=== PATIENT | female | born 1965 | race Two or more races ===

== ENCOUNTER 2020-05-13 11:17 | Emergency (ER) | payer SELFPAY ==
[~2020-05-13] VITALS: Ht 152.4 cm; Wt 67.2 kg
[2020-05-13] MEDS ORDERED: MORPHINE SULFATE 10 MG/ML VIAL. IV ONE (11:45)
[2020-05-13] MEDS ORDERED: LIDO700A21 TP (12:33)
[2020-05-13] MEDS ORDERED: GABA300C18 PO (12:33)
[2020-05-13] MEDS ORDERED: VALA10008 PO (12:33)
--- NOTE | 2020-05-13 12:35 | PHYS DOC ---
Past Medical History Past Medical History: No Pertinent History Past Surgical History: No Surgical History Smoking Status: Never Smoker Alcohol Use: None General Adult EDM: Chief Complaint: SKIN RASH/ABSCESS HPI: HPI: Patient is a 54-year-old female who presents to the emergency room complaining of right side pain. According to her they were seen at a different hospital and diagnosed with some kind of breast cyst and placed on antibiotics and given pain medication. She is having worsening pain and they want the cyst taken out. This started 5 days ago. They have been taking the medications as prescribed. They are unable to tell me which hospital they went to. She is not been having any fever. She does not have any true chest pain, shortness of breath, cough, nausea, vomiting, diaphoresis. Review of Systems: Review of Systems: General: Denies fever, chills, sweats, fatigue Eyes: Denies drainage, blurred vision, eye redness HENT: Denies rhinorrhea, sore throat, earache Respiratory: Denies cough, shortness of breath, wheezing Cardiac: Denies edema, palpitations, chest pain GI: Denies abdominal pain, Nausea, vomiting MSK: Denies back pain, neck pain Skin: Denies rash, jaundice Neuro: Denies headache, dizziness Psychiatric: Denies SI/HI Heart Score: Risk Factors: Risk Factors: DM, Current or recent (<one month) smoker, HTN, HLP, family history of CAD, obesity. Risk Scores: Score 0 - 3: 2.5% MACE over next 6 weeks - Discharge Home Score 4 - 6: 20.3% MACE over next 6 weeks - Admit for Clinical Observation Score 7 - 10: 72.7% MACE over next 6 weeks - Early Invasive Strategies Current Medications: Current Medications Medications (Trade) Dose Ordered Sig/[facility] Start Time Stop Time Status Last Admin Dose Admin Morphine Sulfate (Morphine Sulfate) 5 mg 1X ONCE 05/13/20 11:45 05/13/20 12:00 DC 05/13/20 12:07 5 MG Allergies: Allergies: Allergies Coded Allergies Type Severity Reaction Last Updated Verified No Known Drug Allergies 05/13/20 No Physical Exam: PE: General: Awake, alert, mild distress. Well Nourished, well hydrated. Cooperative HEENT: Atraumatic, EOMI, PERRL, airway patent, moist oral mucosa Neck: Supple, trachea midline Respiratory: CTA bilaterally, normal effort, no wheezing/crackles CV: RRR, no murmur, cap refill <2 GI: Soft, nondistended, nontender, no masses MSK: No obvious deformities Skin: Warm, dry. R lateral chest: 3x4cm area of erythema with vesicles consistent with shingles Neuro: A&O x3, speech NL, sensory and motor grossly intact, no focal deficits Psych: Normal affect, normal mood, not suicidal or homicidal Current Patient Data: Vital Signs: Vital Signs Date Time Temp Pulse Resp B/P (MAP) Pulse Ox O2 Delivery O2 Flow Rate FiO2 05/13/20 12:07 16 98 Room Air 05/13/20 11:20 98.5 55 126/71 (89) 98.5 EKG: EKG: [] Radiology/Procedures: Radiology/Procedures: [] Course & Med Decision Making: Course & Med Decision Making Pertinent Labs and Imaging studies reviewed. (See chart for details) Patient is a 54-year-old female presents the emergency room complaining of sharp shooting pains along her side. On examination patient has a vesicle rash that is consistent with shingles. It is likely that patient's pain is due to shingles. We will place her on antivirals and do different medications for pain. Patient's test results and vitals while in the ED were fully reviewed and discussed with the patient. Patient is stable and at this time does not need admission to the hospital. We have discussed strict return precautions and the importance of following up with their Primary Care Physician. Patient stated understanding and was given an opportunity to ask any questions. Patient is in agreement with plan. Teo Disclaimer: Teo Disclaimer: This electronic medical record was generated, in whole or in part, using a voice recognition dictation system. Departure Departure Impression: Primary Impression: Shingles Disposition: HOME, SELF-CARE Condition: STABLE Patient Instructions: Shingles Scripts Lidocaine (Lidocaine PATCH ) 1 Each Adh..patch 1 EACH TP DAILY for FOR LOCAL PAIN for 5 Days, #5 PATCH REMOVE AFTER 12 HOURS Prov: RAMON GOMEZ MD 05/13/20 Valacyclovir Hcl (VALACYCLOVIR) 1,000 Mg Tablet 1 TAB PO TID, #21 TAB Prov: RAMON GOMEZ MD 05/13/20 Gabapentin (NEURONTIN ) 300 Mg Capsule 300 MG PO TID for NEUROGENIC PAIN for 30 Days, #90 CAP Prov: RAMON GOMEZ MD 05/13/20 Justicifation of Admission Dx: Justifications for Admission: Justification of Admission Dx: N/A RAMON GOMEZ MD May 13, 2020 12:35
[2020-05-13 12:51] VITALS: BP 133/58
--- NOTE | 2020-05-13 14:25 | EKG ---
[facility] [address] [place] [address] Test Date: 2020-05-13 Test Time: 11:23:59 Pat Name: JITENDRA ZAMORA Department: Room: Gender: F Professor Of [employer]: : 1965 Requested By: RAMON GOMEZ Order Number: [id number] Reading MD: Measurements Intervals [place] Rate: 54 P: -34 DC: 136 QRS: 47 QRSD: 82 T: 13 QT: 422 QTc: 402 Interpretive Statements SINUS RHYTHM QRS(T) CONTOUR ABNORMALITY CONSIDER ANTEROSEPTAL MYOCARDIAL DAMAGE POSSIBLY ABNORMAL ECG RI6.01 No previous ECG available for comparison
== END 2020-05-13 12:55 | disposition home or self-care (01) ==
LOC: ER 11:17
DX: B02.9 Zoster without complications (principal); N64.4 Mastodynia; L53.9 Erythematous condition, unspecified
CPT/HCPCS: 93005; 96374; 99283; J2270